=== PATIENT | male | born 1970 | race Two or more races ===

== ENCOUNTER 2018-11-23 03:37 | Emergency (ER) | payer BC ==
[2018-11-23] MEDS ORDERED: Ketorolac Tromethamine 30 MG/ML VIAL ONE (04:28)
--- NOTE | 2018-11-23 08:58 | CT ---
CT CHEST AND ABDOMEN AND PELVIS: Date: 11/23/18 INDICATION: History of 48-year-old male involved in trauma with injury. COMPARISON: None. FINDINGS: CHEST: Lungs are clear. No pleural effusion or pneumothorax is evident. Heart and great vessels are unremark able. ABDOMEN: No definite solid organ injury is evident. There is a hypodensity involving the right mid kidney bj uring 1.7 cm that cannot be further characterized and may reflect a complex cyst or hypodense mass. N o free fluid or enlarged lymph nodes are evident. PELVIS: There is a moderate amount of retained stool within the colon. The appendix is not definitely visuali zed. No free fluid is evident. The bladder, rectum, and perirectal soft tissues are unremarkable appe aring. OSSEOUS STRUCTURES: There are minimally displaced right L3, L2, and L1 transverse process fractures. Thoracolumbar spine appears within normal limits. No definite displaced rib fracture is evident. IMPRESSION: 1. Right L1, L2, and L3 transverse process fractures. 2. No definite acute traumatic injury seen internally within the chest, abdomen, or pelvis. 3. Hypodense lesion involving the right mid kidney requires further evaluation. Renal ultrasound rec ommended for additional characterization. CODE T. POS: [facility]
[2018-11-23] MEDS ORDERED: ISOVUE-370 76%-LOCM 1 ML ONE (11:30)
== END 2018-11-23 05:11 | disposition home or self-care (01) ==
LOC: ERS 03:37 → EDBD 03:37 → ERS 05:11
DX: S32.019A Unspecified fracture of first lumbar vertebra, initial encounter for closed fracture (principal); S32.029A Unspecified fracture of second lumbar vertebra, initial encounter for closed fracture; S32.039A Unspecified fracture of third lumbar vertebra, initial encounter for closed fracture; N28.89 Other specified disorders of kidney and ureter; E03.9 Hypothyroidism, unspecified; Z79.899 Other long term (current) drug therapy; V43.52XA Car driver injured in collision with other type car in traffic accident, initial encounter
CPT/HCPCS: 71260; 74177; 96361; 96374; J1885; Q9966

== ENCOUNTER 2019-03-13 04:24 | Emergency (ER) | payer BC ==
[2019-03-13] MEDS ORDERED: predniSONE 20 MG TAB ONE (04:46)
[2019-03-13] MEDS ORDERED: Albuterol Sulfate 2.5 mg/0.5 ml Neb ONE ×3 (05:02)
== END 2019-03-13 06:01 | disposition home or self-care (01) ==
LOC: SCSER 04:24
DX: J45.909 Unspecified asthma, uncomplicated (principal); E03.9 Hypothyroidism, unspecified; Z79.51 Long term (current) use of inhaled steroids
CPT/HCPCS: 93005; J7512; J7611; J7620

== ENCOUNTER 2019-03-19 10:52 | Outpatient (CLI) | payer BC ==
--- NOTE | 2019-03-19 11:53 | RAD ---
2 VIEWS CHEST: Date: 03/19/19 COMPARISON: None. HISTORY: Pneumonia. FINDINGS: Two views of the chest show normal sized cardiomediastinal silhouette. There is no evidence of consol idation, mass, or pleural effusion. The bones are unremarkable. IMPRESSION: No evidence of acute cardiopulmonary disease. POS: [facility]
== END 2019-03-19 10:53 | disposition home or self-care (01) ==
LOC: BICRAD 10:52
PROVIDERS: ATTEND Allergy & Immunology
DX: J18.9 Pneumonia, unspecified organism (principal)
CPT/HCPCS: 71046

== ENCOUNTER 2019-05-21 20:01 | Emergency (ER) | payer BC ==
[2019-05-21] MEDS ORDERED: Famotidine/PF 20 mg/2ml Vial ONE (20:07)
[2019-05-21] MEDS ORDERED: diphenhydrAMINE 50 MG/ML VIAL ONE (20:07)
[2019-05-21] MEDS ORDERED: methylPREDNISolone Sod Succ/PF 125 MG/2 ML VIAL ONE (20:07)
[2019-05-21] MEDS ORDERED: Albuterol Sulfate 2.5 mg/0.5 ml Neb ONE ×2 (20:21→22:02)
[2019-05-21] MEDS ORDERED: Sodium Chloride For Inhalation 0.9% 3 ML NEB ONE ×3 (20:21→22:02)
[2019-05-21 20:37] LABS: #Basophils 0.2 thou/uL (0.0-0.2); #Eosinphils 2.1 thou/uL (0.0-0.7); #Lymphocytes 3.8 thou/uL (1.20-3.40); #Monocytes 0.9 thou/uL (0.11-0.59); #Neutrophils 4.8 thou/uL (1.40-6.50); %Basophils 1.9 % (0.0-1.0); %Eosinophils 17.6 % (0.0-10.0); %Lymphocytes 32.4 % (21.0-51.0); %Monocytes 7.5 % (0.0-10.0); %Neutrophils 40.5 % (42.0-75.0); Hemoglobin 15.7 g/dL (14.0-18.0); Mean Corpuscular HGB CONC 33.5 g/dL (32.0-36.0); Mean Corpuscular Volume 86.8 fL (78.0-98.0); Platelet Count 306 thou/uL (130-400); RBC Distribution Width 11.8 % (11.5-14.5); Red Blood Cell (RBC) Count 5.39 mill/uL (4.70-6.10); White Blood Cell (WBC) Count 11.8 thou/uL (4.8-10.8)
[2019-05-21 20:48] LABS: ALT (SGPT) 24 U/L (8-55); AST (SGOT) 30 U/L (5-34); Albumin 4.3 g/dL (3.5-5.0); Alkaline Phosphatase 82 U/L (40-110); Anion Gap 15 mmol/L (10-20); BUN (Urea Nitrogen) 13 mg/dL (8.9-20.6); Bilirubin, Total 0.3 mg/dL (0.2-1.2); Calc. Creatinine Clearance 0 mL/min (70-130); Calcium 9.4 mg/dL (7.8-10.44); Carbon Dioxide 26 mmol/L (22-29); Chloride 105 mmol/L (98-107); Estimated GFR-MDRD Greater than 90; Globulin 2.7 g/dL (2.4-3.5); Glucose 102 mg/dL (70-105); Potassium 3.9 mmol/L (3.5-5.1); Sodium 142 mmol/L (136-145)
--- NOTE | 2019-05-21 20:50 | RAD ---
ONE VIEW CHEST: 05/21/19 HISTORY: Shortness of breath. COMPARISON: 03/19/19. The lungs remain clear. No infiltrate identified. Heart and mediastinum unremarkable. IMPRESSION: No acute abnormality. POS: [facility]
== END 2019-05-22 01:05 | disposition home or self-care (01) ==
LOC: SCSER 20:01
DX: J45.901 Unspecified asthma with (acute) exacerbation (principal); E03.9 Hypothyroidism, unspecified; Z79.899 Other long term (current) drug therapy
CPT/HCPCS: 36415; 71045; 80053; 84484; 85025; 93005; 94640; 96361; 96365; 96375; J1200; J2930; J7611; J7620; S0028

== ENCOUNTER 2019-05-29 09:24 | Outpatient (CLI) | payer BC ==
--- NOTE | 2019-05-29 09:40 | RAD ---
XR Chest Pa Lat @ [facility] HISTORY: Dyspnea COMPARISON: 05/21/2019 FINDINGS: The heart size is normal. The lungs are well expanded without focal areas of consolidation, pneumothorax or pleural effusions. IMPRESSION: No radiographic evidence of acute cardiopulmonary process.
== END 2019-05-29 09:25 | disposition home or self-care (01) ==
LOC: RAD 09:24
PROVIDERS: ATTEND Internal Medicine Critical Care Medicine
DX: R06.00 Dyspnea, unspecified (principal)
CPT/HCPCS: 71046

== ENCOUNTER 2022-06-29 10:07 | Emergency (ER) | payer BC, SELFPAY ==
[2022-06-29] MEDS ORDERED: Cyclobenzaprine 10 MG TAB ONE (11:29)
[2022-06-29] MEDS ORDERED: Ketorolac Tromethamine 30 MG/ML VIAL ONE (11:29)
== END 2022-06-29 14:25 | disposition home or self-care (01) ==
LOC: ERS 10:07
DX: S80.12XA Contusion of left lower leg, initial encounter (principal); M54.50 Low back pain, unspecified; E03.9 Hypothyroidism, unspecified; W18.31XA Fall on same level due to stepping on an object, initial encounter
CPT/HCPCS: 72100; 72170; 96372; J1885